=== PATIENT | female | born 1980 | race Two or more races ===

== ENCOUNTER 2023-05-16 13:03 | Emergency (ER) | payer OTHER ==
[~2023-05-16] VITALS: Ht 160 cm; Wt 86.5 kg
[2023-05-16 13:25] VITALS: BP 136/74; PULSE 74; RESP 18; O2SAT 95
== END 2023-05-16 16:00 | disposition home or self-care (01) ==
LOC: ER 13:03
DX: T42.4X5A Adverse effect of benzodiazepines, initial encounter (principal); F41.9 Anxiety disorder, unspecified; F32.9 Major depressive disorder, single episode, unspecified; Y92.89 Other specified places as the place of occurrence of the external cause